=== PATIENT | female | born 1995 | race Caucasian/White ===

== ENCOUNTER 2021-03-15 00:01 | Emergency (ER) | payer BC, SELFPAY ==
[2021-03-15 00:06] VITALS: BP 131/73; PULSE 112; RESP 16; TEMP 36.4; O2SAT 97
--- NOTE | 2021-03-15 00:24 | ED.GENADUL_ITS ---
Discharge Plan Disposition Patient Disposition: HOME Condition: Good Discharge Details Clinical Impression: Skin tear Primary Care Provider: None,None ED Provider: Duglas Grimm Home Meds and New Rx's Prescriptions: Continued Xulane 150-35 mcg/24 hr Patch Weekly 1 patch RF: 0 Discharge Instructions Additional Instructions: Wound care including antibiotic ointment until healed. Return to ED if increasing pain, redness, swelling or evidence of infection. Discharge Data Discharge Date/Time-TO BE ENTERED AT DEPARTURE: 03/15/21 00:33 Medical Decision Making This would be amendable to skin adhesive but location makes that not a viable option. Discussed sutures but given location and sensitivity of the area likely to be very uncomfortable even with lidocaine. Very superficial tear and likely will heal without sequela. Patient opts for third option. Discussed importance of keeping area clean, good hygiene, antibiotic ointment. Return to ED if any signs of infection. HPI General Mode of arrival: ambulatory . Date/Time Provider Initiated Documentation: 03/15/21 00:15 . Limitations to Documentation: no limitations . Information obtained by: patient and RN notes reviewed . HPI Narrative: Patient presents to ED with vaginal injury. Patient was having intercourse with her partner on a chair. She slipped and sustained injury to her vagina on the chair. She was bleeding from the injury and presents now for evaluation. Injury was on the outside portion of her vagina with no internal vaginal bleeding. Related Data Home Medications Medication Instructions Recorded Confirmed Xulane 1 patch 03/15/21 Allergies Allergy/AdvReac Type Severity Reaction Status Date / Time No Known Allergies Allergy Unverified 03/15/21 00:14 General Stated Complaint: [employer] DANNY: 3 Review of Systems Constitutional Constitutional: Denies fever(s) Cardiovascular Cardiovascular: Denies dyspnea Respiratory Respiratory: Denies cough and Denies dyspnea Genitourinary Genitourinary: Reports as per HPI [facility] Medical History No significant past medical history Social History Smoking/Tobacco Use Status: Never Smoking risk assessment performed?: Yes Alcohol Intake: current Alcohol Intake frequency: a few times a month Drug use: Never Do you feel safe at home: Yes Do you feel safe in your relationship?: Yes Exam Narrative Exam Narrative: Const: WDWN female in NAD. HEENT: NC/AT. Normal facial exam. Neck: Supple. Trachea midline. Lungs: Normal respiratory effort. : Exam done with female nurse present. Patient with small superficial skin tear on the outer portion of the left labia minora. No bleeding now. No other lacs, bruising or swelling. Neuro: A+O x 3. Normal speech, mentation, gait. Cranial nerves II - XII grossly intact. No gross motor or sensory deficit. Ext: No C/C/E. Course Vital Signs Vital signs: Vital Signs Temperature 97.5 F L 03/15/21 00:06 Pulse 112 H 03/15/21 00:06 Respiratory Rate 16 03/15/21 00:06 Blood Pressure 131/73 03/15/21 00:06 Pulse Oximetry 97 03/15/21 00:06 Temperature 97.5 F L 03/15/21 00:06 Temperature Source Temporal Artery Scan 03/15/21 00:06 Pulse 112 H 03/15/21 00:06 Respiratory Rate 16 03/15/21 00:06 Respiratory Effort Non-Labored 03/15/21 00:17 Blood Pressure 131/73 03/15/21 00:06 Blood Pressure Position Sitting 03/15/21 00:06 Pulse Oximetry 97 03/15/21 00:06 Oxygen Delivery Method Room Air 03/15/21 00:06 Oxygen Flow Rate 0 03/15/21 00:06 Pain Level 4 03/15/21 00:06
== END 2021-03-15 00:33 | disposition home or self-care (01) ==
PROVIDERS: Emergency Provider Emergency Medicine
DX: S31.41XA Laceration without foreign body of vagina and vulva, initial encounter (principal); W26.8XXA Contact with other sharp object(s), not elsewhere classified, initial encounter
CPT/HCPCS: 99282